=== PATIENT | male | born 1955 | race Caucasian/White ===

== ENCOUNTER → 2016-06-29 | Outpatient (REF) | payer BC | LOC: M LAB REF 14:56 | PROVIDERS: ATTEND Physician Assistant | DX: J02.9 Acute pharyngitis, unspecified (principal) ==

== ENCOUNTER → 2016-07-16 | Outpatient (CLI) | payer BC ==
--- NOTE | 2016-07-16 08:43 | REP ---
Renal ultrasound for stage III chronic renal disease. The kidneys are normal size. The right kidney measures 12.0 x 5.2 x 4.8 cm. Left kidney measures 11.4 x 5.8 x 6.0 cm. There is normal renal cortical echogenicity bilaterally. There is no hydronephrosis, calculus, mass or cyst on the right or the left. Bladder ultrasound: The bladder is incompletely distended. There are bilateral ureteral jets into the urinary bladder with color Doppler assessment. The bladder wall cannot be accurately assessed because of incomplete distension. Impression: Negative bilateral renal ultrasound. The bladder is incompletely distended and cannot be assessed at this time. Signed by Tye Holt MD 07/16/2016 08:35 A
== END ==
LOC: M RAD 07:59
PROVIDERS: ATTEND Internal Medicine Nephrology
DX: N18.3 Chronic kidney disease, stage 3 (moderate) (principal)

== ENCOUNTER 2017-07-04 11:11 | Day surgery (SDC) | payer OTHER ==
[2017-07-04] MEDS: NS 1,000 ML IV (11:42)
[2017-07-04] MEDS ORDERED: PROPOFOL 200 MG/20 ML VIAL As Ordered (11:51)
[2017-07-04] MEDS ORDERED: LIDOCAINE 2% INJ 100 MG/5 ML SDV (FOR ANES.) As Ordered (11:51)
== END 2017-07-04 12:38 | disposition home or self-care (01) ==
LOC: M OPP 11:11
DX: Z12.11 Encounter for screening for malignant neoplasm of colon (principal); Z86.010 Personal history of colon polyps; K64.2 Third degree hemorrhoids; K64.1 Second degree hemorrhoids; K57.30 Diverticulosis of large intestine without perforation or abscess without bleeding; I12.9 Hypertensive chronic kidney disease with stage 1 through stage 4 chronic kidney disease, or unspecified chronic kidney disease; E78.5 Hyperlipidemia, unspecified; E11.9 Type 2 diabetes mellitus without complications; N18.9 Chronic kidney disease, unspecified; Z80.0 Family history of malignant neoplasm of digestive organs; Z80.49 Family history of malignant neoplasm of other genital organs; Z79.82 Long term (current) use of aspirin; Z79.899 Other long term (current) drug therapy; Z79.84 Long term (current) use of oral hypoglycemic drugs
CPT/HCPCS: 45378

== ENCOUNTER → 2020-04-07 | Outpatient (CLI) | payer OTHER ==
[~2020-04-07] MED LIST: ASPI81TA86 PO; DIOV320T3 PO; JANU100T PO; LIPI20TA PO; METF500T13 PO
== END ==
LOC: M LABSMTC 10:47
PROVIDERS: ATTEND Family Medicine
DX: Z20.828 Contact with and (suspected) exposure to other viral communicable diseases (principal)

== ENCOUNTER 2022-08-30 12:11 | Day surgery (SDC) | payer MEDICARE, BC ==
[~2022-08-30] VITALS: Ht 175.3 cm; Wt 95.6 kg
[~2022-08-30 12:11] MED LIST changes: +GLIP10TA18 PO; +HYDR12.55 PO; +JARD1TAB3 PO; +LOSA100T46 PO; +NS 1,000 ML IV ONE; +TADA10TA PO
[2022-08-30] MEDS ORDERED: propofoL 200 MG/20 ML VIAL As Ordered ONE (13:29)
[2022-08-30] MEDS ORDERED: LIDOCAINE 2% MDV 20ML VIAL As Ordered ONE (13:29)
[2022-08-30 14:05] VITALS: BP 165/85
== END 2022-08-30 14:11 | disposition home or self-care (01) ==
LOC: M OPP 12:11
PROVIDERS: ATTEND Surgery
DX: Z12.11 Encounter for screening for malignant neoplasm of colon (principal); Z80.0 Family history of malignant neoplasm of digestive organs; K57.30 Diverticulosis of large intestine without perforation or abscess without bleeding; Z79.84 Long term (current) use of oral hypoglycemic drugs; Z79.899 Other long term (current) drug therapy

== ENCOUNTER → 2022-12-21 | Outpatient (CLI) | payer MEDICARE, BC ==
[~2022-12-21] MED LIST changes: -NS 1,000 ML IV ONE
== END ==
LOC: M RAD 08:56
PROVIDERS: ATTEND Specialist
DX: K76.9 Liver disease, unspecified (principal)

== ENCOUNTER → 2023-02-13 | Outpatient (CLI) | payer MEDICARE, BC | LOC: M SLEEP 20:00 | PROVIDERS: ATTEND Internal Medicine Pulmonary Disease | DX: G47.33 Obstructive sleep apnea (adult) (pediatric) (principal) ==

== ENCOUNTER → 2023-03-12 | Outpatient (CLI) | payer MEDICARE, BC | LOC: M SLEEP 20:00 | PROVIDERS: ATTEND Internal Medicine Pulmonary Disease | DX: G47.33 Obstructive sleep apnea (adult) (pediatric) (principal) ==